=== PATIENT | male | born 1935 | race Caucasian/White ===

== ENCOUNTER 2016-07-31 05:33 | Emergency (ER) | payer MEDICARE ==
[~2016-07-31 05:33] MED LIST: AFRIN15 NAS; ALKA-SELT+ OR; ALKA-SELTZE1 OR; AMB5 PO; C1 PO; COUMADIN10 MG PO; COUMADIN7.5 MG PO; CYANO1000T PO; FISH-EPA1000 MG PO; FOLIC PO; L20 PO; LORTAB 5 PO; LOTREL1 CA1 PO; LOTREL1 CA4 PO; LOVENOX150 SC; MAXIMUM D3 PO; MTX2.5 PO; NORCO1 TA1 PO; NOVOLOGMIX SC; PENICILLN VK500 MG PO; PROSCAR5 PO; VITAMIN B-121000 MC1 SL; [UNRECOGNIZED DRUG - OTHER] OR; [UNRECOGNIZED DRUG - OTHER] PO
[2016-07-31 06:27] LABS: BASOPHILS 0.8 %; BASOPHILS ABSOLUTE 0.06 10/3/uL (0.0-0.16); EOSINOPHILS 5.8 %; EOSINOPHILS ABSOLUTE 0.42 10/3/uL (0.0-0.53); IMMATURE GRANULOCYTES 0.3 %; IMMATURE GRANULOCYTES ABSOLUTE 0.02 10/3/uL (0.0-0.11); LYMPHOCYTES 21.5 %; LYMPHOCYTES ABSOLUTE 1.55 10/3/uL (0.67-4.30); MEAN CORPUS HGB CONC 33.5 g/dL (32.0-36.0); MEAN CORPUSCULAR HEMOGLOB 32.1 pg (26.0-34.0); MEAN CORPUSCULAR VOLUME 95.8 fL (80-100); MEAN PLATELET VOLUME 10.4 fL (9.2-13.0); MONOCYTES 9.3 %; MONOCYTES ABSOLUTE 0.67 10/3/uL (0.21-1.20); NEUTROPHILS 62.3 %; NEUTROPHILS ABSOLUTE 4.49 10/3/uL (2.02-8.40); RBC DISTRIBUTION WIDTH 13.9 % (12.0-16.0); RED CELL COUNT 4.98 10/6/uL (4.7-6.1)
[2016-07-31 06:28] LABS: ER CBC TAT 0 Hrs 11 Mins; HEMATOCRIT 47.7 % (40.0-51.0); MANUAL DIFF NO %; PLATELET COUNT 192 10/3/uL (150-400); WHITE BLOOD CELLS 7.2 10/3/uL (4.5-10.5)
[2016-07-31 06:34] LABS: INTERNATIONAL NORMAL RATI 2.5 UNITS (-); PROTIME (NOT ORD) 26.5 SEC (12.0-14.5)
[2016-09-17] MEDS ORDERED: LOTREL1 CA1 PO (09:59)
[2016-09-17] MEDS ORDERED: PROSCAR5 PO (09:59)
[2016-09-17] MEDS ORDERED: LOP25 PO (10:00)
[2016-09-17] MEDS ORDERED: PRILO PO (10:00)
[2016-09-17] MEDS ORDERED: VITAMIN D31000 UNIT PO (10:01)
== END 2016-07-31 07:01 | disposition home or self-care (01) ==
LOC: ER 05:33
PROVIDERS: Specialist
PROC: 2Y41X5Z Packing of Nasal Region using Packing Material (ICD-10-PCS; principal; 2016-07-31)
DX: R04.0 Epistaxis (principal); I48.2 Chronic atrial fibrillation; E11.9 Type 2 diabetes mellitus without complications; I10 Essential (primary) hypertension; Z79.01 Long term (current) use of anticoagulants; Z79.2 Long term (current) use of antibiotics; Z79.4 Long term (current) use of insulin; Z79.891 Long term (current) use of opiate analgesic; Z79.899 Other long term (current) drug therapy
CPT/HCPCS: 85025; 85610; 93005; 99284; A9270-GY